=== PATIENT | male | born 1950 | race Caucasian/White ===

== ENCOUNTER 2020-03-21 09:44 | Emergency (ER) | payer OTHER ==
[~2020-03-21] VITALS: Ht 180.3 cm; Wt 111.1 kg
[2020-03-21 09:44] VITALS: BP_SYST 205
[~2020-03-21 09:44] MED LIST: ASA81 PO; CAT.2 PO; CLOP75TA32 PO; EMPA25TA PO; ENAL20TA18 PO; HYDR12.585 PO; METO25TA6 PO; SIMV40TA2 PO; SITA1TBM PO
[2020-03-21] MEDS: MORPHINE 4 MG/ML INJ. SYRINGE IVP ONE (10:09)
[2020-03-21] MEDS: KETOROLAC TROMETHAMINE 30 MG VIAL IVP ONE (10:09)
[2020-03-21] MEDS: NACL 0.9% 1,000 ML IV ONE (10:10)
[2020-03-21 10:15] LABS: BASOPHILS % (AUTO) 0.3 % (0.0-2.0); HEMATOCRIT 51.3 % (36-54); HEMOGLOBIN 17.3 g/dL (14.0-18.0); LYMPHOCYTES # (AUTO) 0.5 K/uL (1.0-5.5); LYMPHOCYTES % (AUTO) 3.4 % (20.5-51.5); MEAN CORPUSCULAR HEMOGLOBIN 30 pg (27-31); MEAN CORPUSCULAR HGB CONC 34 % (32-36); MEAN CORPUSCULAR VOLUME 90 fL (79.0-98.0); MONOCYTES # (AUTO) 0.8 K/uL (0.0-1.0); MONOCYTES % (AUTO) 5.6 % (1.7-9.3); NEUTROPHILS # (AUTO) 12.6 K/uL (1.8-7.7); NEUTROPHILS % (AUTO) 90.7 % (40.0-70.0); PLATELET COUNT (AUTO) 130 K/uL (130-430); RED BLOOD CELL COUNT(AUTO) 5.69 MIL/uL (4.2-6.2); RED CELL DISTRIBUTION WIDTH 13.5 % (9.0-15.0); WHITE BLOOD COUNT (AUTO) 13.9 K/uL (4.8-10.8)
[2020-03-21 10:27] LABS: CALCIUM 9.1 mg/dL (8.4-11.0); CREATININE 1.21 mg/dL (0.55-1.30); POTASSIUM 3.8 mmol/L (3.5-5.1)
[2020-03-21 10:34] LABS: ALBUMIN 3.8 g/dL (3.4-4.8); TOTAL BILIRUBIN 0.9 mg/dL (0.0-1.0)
[2020-03-21 11:44] LABS: BILIRUBIN,URINE NEGATIVE (NEGATIVE); BLOOD, URINE 3+ (NEGATIVE); CLARITY/URINE CLEAR (CLEAR); COLOR,URINE YELLOW (YELLOW); GLUCOSE,URINE 3+ (NEGATIVE); KETONES,URINE 2+ (NEGATIVE); LEUKOCYTE ESTERASE ,URINE NEGATIVE (NEGATIVE); NITRITE, URINE NEGATIVE (NEGATIVE); PROTEIN URINE 2+ (NEGATIVE); UROBILINOGEN,URINE 0.2 (0.2-1.0)
[2020-03-21] MEDS: ENALAPRILAT DIHYDRATE 1.25 MG/ML VIAL IVP ONE (11:45)
[2020-03-21 12:15] VITALS: BP_SYST 120
[2020-03-21 12:20] LABS: BACTERIA,URINE None Seen /HPF (None Seen); WBC,URINE 0-3 /HPF (0-3)
== END 2020-03-21 12:17 | disposition home or self-care (01) ==
LOC: SED 09:44
DX: R10.9 Unspecified abdominal pain (principal); I10 Essential (primary) hypertension; E11.9 Type 2 diabetes mellitus without complications; Z79.899 Other long term (current) drug therapy; Z79.82 Long term (current) use of aspirin
CPT/HCPCS: 36415; 74176; 81000; 80053; 82962; 85025; 96361; 96374; 96375; 99284; J1885; J2270; J7030

== ENCOUNTER 2022-09-09 10:30 | Inpatient (IN) | payer OTHER ==
[~2022-09-09] VITALS: Ht 180.3 cm; Wt 112.9 kg
[~2022-09-09 10:30] MED LIST changes: +SIMV-345 PO; -SIMV40TA2 PO
--- NOTE | 2022-09-09 10:30 | NUR ---
Placed in room 01 . Placed on cardiac rehabilitation specialist, blood pressure machine and pulse oximeter. To gown for exam. Side rails up. Report given to FILEMON DAMON.
--- NOTE | 2022-09-09 10:30 | NUR ---
PT BIBA AWAKE AND ALERT AOX4, NO SOB OR DISTRESS. PT WAS BROUGHT IN BECAUSE WHILE HE WAS AT RELIGIOUS, HIS ASSISTANT TODDLER TEACHER NOTICED HE WAS LOOKING MORE WEAK AND HIS SPEECH WAS SLOW. PT WAS OBSERVED TO ALSO HAVE L FACE DROOP. PT DENIES PAIN. PT STATES HE'S ON BLOOD THINNER BUT DOESNT KNOW WHAT KIND OR DOSAGE, FOR LOWER EXTREMITES ARTERY BLOCKAGE. PT HAS HX OF 2 CVA 5 YEARS AGO. PT ALSO HAS HX OF HTN, DM2, HLD.
[2022-09-09 10:33] VITALS: BP_SYST 88
--- NOTE | 2022-09-09 10:33 | NUR ---
ER DR. ESPINAL EXAMINING PT
--- NOTE | 2022-09-09 10:36 | NUR ---
CODE STROKE CALLED
--- NOTE | 2022-09-09 10:38 | NUR ---
Patient transported to radiology via GURNEY, accompanied by STAFF AND RN.
--- NOTE | 2022-09-09 10:42 | NUR ---
TELE NEURO REQUESTED ORDERED BY DR. ESPINAL
[2022-09-09] MEDS ORDERED: iohexoL 350 mgI/mL, 100 ML INFUS..BTL IV ONE (10:45)
[2022-09-09 10:54] LABS: BASOPHILS # (AUTO) 0.1 K/uL (0.0-0.2); BASOPHILS % (AUTO) 0.7 % (0.0-2.0); EOSINOPHILS # (AUTO) 0.2 K/uL (0.0-0.4); EOSINOPHILS % (AUTO) 1.6 % (0.0-4.0); HEMATOCRIT 48.9 % (36-54); HEMOGLOBIN 16.6 g/dL (14.0-18.0); LYMPHOCYTES # (AUTO) 1.6 K/uL (1.0-5.5); MEAN CORPUSCULAR HEMOGLOBIN 30 pg (27-31); MEAN CORPUSCULAR HGB CONC 34 % (32-36); MEAN CORPUSCULAR VOLUME 90 fL (79.0-98.0); MONOCYTES # (AUTO) 0.7 K/uL (0.0-1.0); MONOCYTES % (AUTO) 7.7 % (1.7-9.3); NEUTROPHILS # (AUTO) 7.1 K/uL (1.8-7.7); PLATELET COUNT (AUTO) 169 K/uL (130-430); RED BLOOD CELL COUNT(AUTO) 5.44 MIL/uL (4.2-6.2); RED CELL DISTRIBUTION WIDTH 14.1 % (9.0-15.0); WHITE BLOOD COUNT (AUTO) 9.7 K/uL (4.8-10.8)
--- NOTE | 2022-09-09 11:05 | NUR ---
TELENEURO SPEAKING TO AND EVALUATING PT
[2022-09-09 11:08] LABS: ANION GAP 11 (5-15); CALCIUM 9.2 mg/dL (8.4-11.0); CHLORIDE 98 mmol/L (98-107); GLUCOSE 267 mg/dL (70-99); UREA NITROGEN, BLOOD 23 mg/dL (8-21)
--- NOTE | 2022-09-09 11:10 | NUR ---
TELE NEURO STATED NO TPA, STROKE SCALE 0
[2022-09-09 11:14] LABS: ALANINE AMINOTRANSFERASE 25 U/L (12-78); ALBUMIN 3.5 g/dL (3.4-4.8); ASPARTATE AMINOTRANSFERASE 23 U/L (10-37); PROTHROMBIN TIME 10.7 SECS (9.5-12.5); TOTAL BILIRUBIN 0.8 mg/dL (0.0-1.0)
--- NOTE | 2022-09-09 11:20 | NUR ---
RUSS SWABBED AND SENT TO LAB
[2022-09-09] MEDS ORDERED: NACL 0.9% 1,000 ML IV ONE (12:15)
--- NOTE | 2022-09-09 14:16 | NUR ---
Admit bed requested Patient will be admitted to care of . Admitted to TELE unit. Diagnosis CVA Inpatient (Yes or No) YES Observation (Yes or No) NO Orientation concerns or request close to nursing station (Yes or No) NO Covid Status NEGATIVE On vent or bipap NO Isolation requirements NO Needs a sitter NO From Home (Yes or if No enter name of facility) HOME Requires Dialysis (Yes or No) NO Med Rec Completed (Yes of No) YES
--- NOTE | 2022-09-09 16:30 | NUR ---
Patient will be admitted to care of DR MULTANI. Admitted to TELE unit. Will go to room 111A. Belongings list completed. Complete and up to date summary report printed. SBAR report to be given at bedside with opportunity for questions.
--- NOTE | 2022-09-09 16:35 | NUR ---
OPENING NOTE; PT CAME FROM ER. RECEIVED REPORT FROM [facility] ER NURSE. VS: 96.7,78,134/77/78, 98%@RA. PT DENIES ANY PAIN OR DISCOMFORT. AMBULATED TO BATHROOM WITH STEADY GAIT. IV S/L NOTED NO IV INFILTRATION OR INFECTION NOTED. ENCOURAGED PT TO USE CALL LIGHT FOR ASSISTANCE. SAFETY PRECAUTION IN PLACE. WILL CONT TO MONITOR
--- NOTE | 2022-09-09 16:44 | NUR ---
CONSULTATION PAGED/CALLED Reason for Consultation: [] CVA Person Who was Notified: [] TEXTED DR Fracisco HENSON ON HIS CELL Consulting Physician: [] DR Fracisco HENSON Animal Rescuer Specialty: [] NEURO Ordering Physician: [] DR MULTANI
--- NOTE | 2022-09-09 16:45 | NUR ---
CONSULTATION PAGED/CALLED Reason for Consultation: [] CVA Person Who was Notified: [] DR Padmini MULTANI/ WILL ALSO NOTIFY MELINDA FLORES TOMORROW, 09/10/22 Consulting Physician: [] DR Padmini MULTANI Nursing Care Attendant Specialty: [] CARDIOLOGY Ordering Physician: [] DR Jm MULTANI
[2022-09-09 16:46] VITALS: BP_SYST 134
--- NOTE | 2022-09-09 18:30 | NUR ---
NOTES; FAMILY DROPPED OFF CELL PHONE GRAIN PACKER. WILL UPDATE INVENTORY LIST
[2022-09-09] MEDS ORDERED: FOLIC ACID 1 MG, THIAMINE HCL 100 MG, MAGNESIUM SULFATE 1 GM, MVI 10 ML in NACL 0.9% 1,... IV SCH (19:00)
--- NOTE | 2022-09-09 19:01 | NUR ---
CLOSING NOTE; PT RESTING IN BED. IV S/L REMAIN INTACT AND PATENT. NO IV INFILTRATION OR INFECTION NOTED. DENIES ANY PAIN OR DISCOMFORT. BED IS LOCKED AND AT LOW POSITION. SAFETY PRECAUTION IN PLACE. ENCOURAGED PT TO USE CALL LIGHT FOR ASSISTANCE. WILL ENDORSE CARE TO DATA PROCESSING CONTROL CLERK NURSE FOR THE CONTINUITY OF CARE.
[2022-09-09 19:45] VITALS: BP_SYST 121
[2022-09-09] MEDS ORDERED: THIAMINE HCL 100 MG, MAGNESIUM SULFATE 1 GM in NS 100 ML IV SCH (21:00)
[2022-09-09] MEDS ORDERED: FOLIC ACID 1 MG, MVI 10 ML in NACL 0.9% 1,000 ML IV SCH (21:00)
[2022-09-09] MEDS: chlordiazePOXIDE HCL 25 MG CAPSULE PO SCH ×2 (21:00→21:30)
[2022-09-10] VITALS: BP_SYST 116
--- NOTE | 2022-09-10 05:41 | NUR ---
CLOSING NOTE PATIENT WAS MOSTLY ALERT BUT HAD EPISODES OF CONFUSION. PATIENT DID NOT SHOW ANY STROKE-LIKE DEFICITS OTHER THAN SOME EPISODES OF CONFUSION. REORIENTATION EFFORTS WERE SUCCESSFUL. HE WAS COOPERATIVE TO CARE, HE WAS STABLE THROUGHOUT THE SHIFT, NO SHORTNESS OF BREATH OR CARDIAC EVENTS NOTED. AT THIS TIME, HE IS RESTING IN BED, STABLE, NO SIGNS OF RESPIRATORY DISTRESS. CALL LIGHT WITHIN REACH. BED IS LOCKED, ALARMED, AND AT THE LOWEST LEVEL. FALL, SAFETY, STROKE AND RESPIRATORY PRECAUTIONS HAVE BEEN IN PLACE THROUGHOUT THE SHIFT. WILL CONTINUE TO MONITOR UNTIL REPORT IS GIVEN AT BEDSIDE TO AM NURSE.
--- NOTE | 2022-09-10 07:53 | NUR ---
OPENING NOTES: RECEIVED BEDSIDE SBAR FROM PM SHIFT NURSE, NO S/S OF ANY DISTRESS, NON LABOR BREATHING, IV INTACT, PATIENT RESTING IN BED WITH EYES CLOSED, BED AT LOCKED AND LOW POSITION , CALL LIGHT IN REACH, ALL SAFETY CHECKS DONE AND WILL DO THOUGHT THE DAY.
[2022-09-10] MEDS: chlordiazePOXIDE HCL 25 MG CAPSULE PO SCH ×2 (08:52→09:00)
--- NOTE | 2022-09-10 09:02 | NUR ---
PATIENT REFUSED LIBRIUM, STATES DOSE NOT TAKE AT HOME.
--- NOTE | 2022-09-10 11:00 | NUR ---
SPOKE WITH DR HENSON, Fabrizio/Brionna SILVA, AND YEISON HOLDEN IV, PATIENT HAS NO HISTORY OF ETOH,
[2022-09-10 11:54] VITALS: BP_SYST 172
[2022-09-10] MEDS ORDERED: HYDROcodone/ACETAMIN 10-325 MG TAB PO PRN (12:00)
[2022-09-10] MEDS ORDERED: ONDANSETRON HCL 4 MG/2 ML VIAL IVP PRN (12:00)
[2022-09-10] MEDS ORDERED: HYDROcodone/ACETAMIN 5-325 MG TAB (NORCO/ VICODIN) PO PRN (12:00)
[2022-09-10] MEDS ORDERED: NALOXONE HCL 0.4 MG/ML AMP (NARCAN) IVP PRN ×2 (12:00)
[2022-09-10] MEDS ORDERED: NON-FORMULARY MEDICATION (Empagliflozin (Jardiance) 25 MG) PO SCH (12:00)
[2022-09-10] MEDS ORDERED: ACETAMINOPHEN 325 MG TABLET PO PRN ×2 (12:00→12:30)
[2022-09-10] MEDS ORDERED: ASPIRIN 81 MG TAB.CHEW PO ONE (12:15)
[2022-09-10] MEDS ORDERED: ATORVASTATIN 20 MG TABLET PO ONE (12:15)
[2022-09-10] MEDS ORDERED: CLOPIDOGREL BISULFATE 75 MG TABLET PO ONE (12:30)
--- NOTE | 2022-09-10 13:23 | NUR ---
PATIENT REQUESTING ACCU CHECKS, NEW ORDER FROM DR Jm MULTANI FINGER STICKS ACHS, NO INSULIN AT THIS TIME
[2022-09-10] MEDS: NORMAL SALINE 5 ML DISP.SYRIN IVF SCH ×2 (14:00→21:08)
--- NOTE | 2022-09-10 15:57 | NUR ---
Paint Brush Maker EMAIL CAMPAIGN MANAGER was alerted to this patient in the Length of Stay mtg. due to pts. ETOH. EMAIL CAMPAIGN MANAGER entered pts. room and he was on phone with his supervisor wet pour. EMAIL CAMPAIGN MANAGER introduced self to pt. at bedside. Pt. was calm, kind and open to this interview. Pt. stated he is feeling like he had a mild stroke and stated this will be the third one in a few years. Pt. stated he does not have an alcohol issue and only drinks a 12-pack in a year. EMAIL CAMPAIGN MANAGER had looked in pts IV med. list which shows pt. had a banana bag. Pt. was adamant and numerous times declined any resources EMAIL CAMPAIGN MANAGER was prepared to leave with pt. Pt. stated he lives home alone and his son lives in [place] and Dtr. in [place]. Additional support comes from his methodist and 3 pastors there that he had a connection with. When asked if pt. had any mental health needs currently or in the past, pt. stated about 6 year ago , he was depressed and was in a lock down facility. Dr. Rosas finally cleared him. Pt. stated he is not depressed or suicidal at this time. Pt. added on a weekly basis, he speaks to a therapist in [place] via zoom for an issue he choose not to elaborate on. EMAIL CAMPAIGN MANAGER affirmed pts. ability to seek out help and validated how important it is to have a therapist to speak to. Pt did not have any needs, questions or concerns at this point. EMAIL CAMPAIGN MANAGER left her card with pt. and will remain available as needed.
[2022-09-10 16:18] VITALS: BP_SYST 157
--- NOTE | 2022-09-10 18:49 | NUR ---
CLOSING NOTES: PATIENT REMAINED STABLE THOUGHT THE DAY, NO S/S OF ANY DISTRESS, NON LABOR BREATHING, IV INTACT, BED LOCKED AND LOW, ALL SAFETY CHECKS DONE THOUGHT THE DAY, WILL GIVE PM SHIFT NURSE BEDSIDE SBAR
[2022-09-10 19:35] VITALS: BP_SYST 156
[2022-09-10] MEDS ORDERED: SITAGLIPTIN PHOS PO SCH (21:00)
[2022-09-10] MEDS ORDERED: [UNRECOGNIZED DRUG - OTHER] PO SCH (21:00)
[2022-09-10] MEDS ORDERED: METFORMIN HCL PO SCH (21:00)
[2022-09-10] MEDS ORDERED: cloNIDine HCL 0.1 MG TABLET PO ONE (21:18)
[2022-09-10] MEDS ORDERED: METOPROLOL TARTRATE 25 MG TABLET PO ONE (21:18)
[2022-09-10] MEDS ORDERED: lisinopriL 20 MG TABLET PO ONE (21:40)
[2022-09-11] VITALS: BP_SYST 151
[2022-09-11] MEDS: NORMAL SALINE 5 ML DISP.SYRIN IVF SCH ×3 (06:13→20:53)
[2022-09-11 06:14] LABS: BASOPHILS # (AUTO) 0.1 K/uL (0.0-0.2); BASOPHILS % (AUTO) 0.8 % (0.0-2.0); EOSINOPHILS # (AUTO) 0.4 K/uL (0.0-0.4); EOSINOPHILS % (AUTO) 5.8 % (0.0-4.0); HEMATOCRIT 46.9 % (36-54); HEMOGLOBIN 15.8 g/dL (14.0-18.0); LYMPHOCYTES # (AUTO) 2.3 K/uL (1.0-5.5); LYMPHOCYTES % (AUTO) 33.7 % (20.5-51.5); MEAN CORPUSCULAR HEMOGLOBIN 30 pg (27-31); MEAN CORPUSCULAR HGB CONC 34 % (32-36); MEAN CORPUSCULAR VOLUME 89 fL (79.0-98.0); MONOCYTES # (AUTO) 0.6 K/uL (0.0-1.0); MONOCYTES % (AUTO) 8.5 % (1.7-9.3); NEUTROPHILS # (AUTO) 3.6 K/uL (1.8-7.7); NEUTROPHILS % (AUTO) 51.2 % (40.0-70.0); PLATELET COUNT (AUTO) 152 K/uL (130-430); RED BLOOD CELL COUNT(AUTO) 5.26 MIL/uL (4.2-6.2); RED CELL DISTRIBUTION WIDTH 14.3 % (9.0-15.0); WHITE BLOOD COUNT (AUTO) 6.9 K/uL (4.8-10.8)
[2022-09-11 06:42] LABS: ALANINE AMINOTRANSFERASE 24 U/L (12-78); ALBUMIN 3.3 g/dL (3.4-4.8); ANION GAP 9 (5-15); ASPARTATE AMINOTRANSFERASE 14 U/L (10-37); CALCIUM 8.8 mg/dL (8.4-11.0); CHLORIDE 103 mmol/L (98-107); CREATININE 1.13 mg/dL (0.55-1.30); GLUCOSE 158 mg/dL (70-99); PHOSPHORUS 3.4 mg/dL (2.7-4.5); TOTAL BILIRUBIN 0.7 mg/dL (0.0-1.0); UREA NITROGEN, BLOOD 21 mg/dL (8-21)
--- NOTE | 2022-09-11 06:45 | NUR ---
CLOSING NOTE PATIENT SLEPT WELL THROUGHOUT THE NIGHT, NO COMPLAINTS OF CHEST PAIN OR SHORTNESS OF BREATH. PATIENT WAS COOPERATIVE TO CARE. AT THIS TIME, HE IS RESTING IN BED, STABLE, NO SIGNS OF RESPIRATORY DISTRESS. CALL LIGHT PLACED WITHIN REACH. BED IS LOCKED, ALARMED, AND AT THE LOWEST LEVEL. FALL, SAFETY, RESPIRATORY AND ASPIRATION PRECAUTIONS HAVE BEEN IN PLACE THROUGHOUT THE SHIFT. WILL CONTINUE TO MONITOR UNTIL REPORT IS GIVEN AT BEDSIDE TO AM NURSE. Addendum: 09/11/22 at 0730 by [employer] FILEMON Mauro RN NO STROKE LIKE DEFICITS NOTED.
--- NOTE | 2022-09-11 07:34 | NUR ---
OPENING NOTES: RECEIVED BEDSIDE SBAR FROM PM SHIFT NURSE, NO S/S OF ANY DISTRESS, NON LABOR BREATHING, SKIN INTACT, IV INTACT CLEAN AND DRY, BED AT LOW AND LOCKED POSITION CALL LIGHT IN REACH, ALL SAFETY CHECKS DONE AND WILL DO THOUGHT THE DAY. WILL MONITOR PATIENT AND GIVE MEDS PER ORDERS
[2022-09-11 08:00] VITALS: BP_SYST 107
[2022-09-11] MEDS: ASPIRIN 81 MG TAB.CHEW PO SCH (08:06)
[2022-09-11] MEDS: cloNIDine HCL 0.1 MG TABLET PO SCH ×2 (08:08→20:48)
[2022-09-11] MEDS: CLOPIDOGREL BISULFATE 75 MG TABLET PO SCH (08:09)
[2022-09-11] MEDS: lisinopriL 20 MG TABLET PO SCH ×2 (08:09→20:48)
[2022-09-11] MEDS: ATORVASTATIN 20 MG TABLET PO SCH (08:09)
[2022-09-11] MEDS ORDERED: METOPROLOL TARTRATE 25 MG TABLET PO SCH (09:00)
[2022-09-11] MEDS ORDERED: ENAL20TA18 PO ×2 (10:06)
[2022-09-11] MEDS ORDERED: HYDR12.585 PO (10:06)
[2022-09-11] MEDS ORDERED: LIP20 PO (10:06)
[2022-09-11] MEDS ORDERED: HYDROCHLOROTHIAZIDE 12.5 MG CAPSULE (HCTZ) PO ONE (10:15)
--- NOTE | 2022-09-11 18:27 | NUR ---
CLOSING NOTES: PATIENT REMAINED STABLE THOUGHT THE DAY, NO S/S OF ANY DISTRESS, NON LABOR BREATHING, SKIN ALL INTACT, BED AT LOCKED AND LOW POSITION CALL LIGHT IN REACH, IV INTACT WILL GIVE PM SHIFT NURSE BEDSIDE SBAR
[2022-09-11] MEDS ORDERED: METOPROLOL SUCCINATE 25 MG TAB.SR.24H (TOPROL XL) PO ONE (19:00)
[2022-09-11 19:20] VITALS: BP_SYST 153
--- NOTE | 2022-09-11 19:20 | NUR ---
PM ASSESSMENT; -Patient is awake, alert, oriented X4. Pt denies any chest pain,sob,or any acute distress. Patient oriented to hospital room, call light, toileting, pain management and safety-teach back done. Patient informed that I (Anila) will be her nurse and that his room number is 111-A. Side rails 2, Call light within reach. Cont to monitor pt.
[2022-09-12] VITALS: BP_SYST 114
--- NOTE | 2022-09-12 00:15 | NUR ---
ROUNDS; -Pt is asleep.NO s/s any acute distress noted. Call light w/in reach. Cont to monitor pt.
--- NOTE | 2022-09-12 03:45 | NUR ---
ROUNDS; -Pt is asleep.NO s/s any acute distress noted. Call light w/in reach. Cont to monitor pt.
[2022-09-12] MEDS: NORMAL SALINE 5 ML DISP.SYRIN IVF SCH ×3 (06:08→20:44)
--- NOTE | 2022-09-12 06:34 | NUR ---
CLOSING NOTES; -Pt is resting in bed comfortably. No s/s any acute distress noted. Pt's condition stable. Bed alarmed,side railsx2 ,call light w/in reach. will endorse to next nurse to cont care. Addendum: 09/12/22 at 0730 by Federica Mauro RN RN ADDITIONAL NOTES; ENDORSED TO BNOI COLBERT TO CONTINUITY OF CARE AT 0711.
[2022-09-12 07:04] LABS: BASOPHILS # (AUTO) 0.1 K/uL (0.0-0.2); BASOPHILS % (AUTO) 0.9 % (0.0-2.0); EOSINOPHILS # (AUTO) 0.3 K/uL (0.0-0.4); EOSINOPHILS % (AUTO) 4.9 % (0.0-4.0); HEMATOCRIT 46.8 % (36-54); LYMPHOCYTES % (AUTO) 31.8 % (20.5-51.5); MEAN CORPUSCULAR HEMOGLOBIN 31 pg (27-31); MEAN CORPUSCULAR HGB CONC 34 % (32-36); MEAN CORPUSCULAR VOLUME 89 fL (79.0-98.0); MONOCYTES # (AUTO) 0.5 K/uL (0.0-1.0); MONOCYTES % (AUTO) 8.5 % (1.7-9.3); NEUTROPHILS # (AUTO) 3.4 K/uL (1.8-7.7); NEUTROPHILS % (AUTO) 53.9 % (40.0-70.0); PLATELET COUNT (AUTO) 143 K/uL (130-430); RED BLOOD CELL COUNT(AUTO) 5.24 MIL/uL (4.2-6.2); RED CELL DISTRIBUTION WIDTH 14.5 % (9.0-15.0); WHITE BLOOD COUNT (AUTO) 6.2 K/uL (4.8-10.8)
[2022-09-12 07:38] LABS: ANION GAP 9 (5-15); CHLORIDE 103 mmol/L (98-107); CREATININE 1.03 mg/dL (0.55-1.30); GLUCOSE 147 mg/dL (70-99); UREA NITROGEN, BLOOD 20 mg/dL (8-21)
[2022-09-12 08:00] VITALS: BP_SYST 168
[2022-09-12] MEDS: HYDROCHLOROTHIAZIDE 12.5 MG CAPSULE (HCTZ) PO SCH (08:48)
[2022-09-12] MEDS: CLOPIDOGREL BISULFATE 75 MG TABLET PO SCH (08:48)
[2022-09-12] MEDS: METOPROLOL SUCCINATE 50 MG TAB.SR.24H (TOPROL XL) PO SCH (08:48)
[2022-09-12] MEDS: lisinopriL 20 MG TABLET PO SCH ×2 (08:50→20:43)
[2022-09-12] MEDS: ATORVASTATIN 20 MG TABLET PO SCH (08:50)
[2022-09-12] MEDS: ASPIRIN 81 MG TAB.CHEW PO SCH (08:50)
[2022-09-12] MEDS: cloNIDine HCL 0.1 MG TABLET PO SCH (08:51)
--- NOTE | 2022-09-12 10:59 | NUR ---
Hand off report received from Teressa COLBERT. Patient alert, oriented and awake; states that he is waiting for his breakfast and that he is possibly getting discharged today. AM meds administered but Metformin held. Upon checking pt records, pt had CT with Iv contrast on 09/09. Pt received 3 doses of metformin for the past 2 days. Called pharmacy and spoke with the pharmacist to consult whether metformin should be held today even though it is past 48hrs post IV contrast admin. Pharmacy recommended to hold the metformin for now and stated that lactic acid was already elevated prior to administering the metformin and that doctor should be notified and see if he can order lactic acid labs. Spoke to Dr. Moises Monge and orders received: hold metfomin for now and order lactic acid labs.
[2022-09-12 11:56] VITALS: BP_SYST 149
[2022-09-12] MEDS ORDERED: amLODIPine BESYLATE 5 MG TABLET PO ONE (13:30)
--- NOTE | 2022-09-12 15:03 | NUR ---
Dietitian Recommendations * Continue Cardiac, CCHO diet LP, MS GREGORIO Please refer to Nutrition Assessment for details. Addendum: 09/12/22 at [address] Amended: Links added.
[2022-09-12 17:33] VITALS: BP_SYST 158
--- NOTE | 2022-09-12 17:42 | NUR ---
RECEIVED A CALL EARLIER FROM GREGORIO, [employer] FOR [employer] FA[employer] # WHO IS REQUESTING IF PT CAN HAVE AN ORDER FOR HOME HEALTH WITH PT. PT IS NOT YET CLEARED BY PSYCHOLOGICAL ASSISTANT TO GO HOME TODAY BUT POSSIBLY OK [facility]. PENDING CARDIOLOGY CLEARANCE.
--- NOTE | 2022-09-12 18:12 | NUR ---
LACTIC ACID RESULT 2.1 [address] CRAIG FOR THIS RESULT. ORDERED TO DC METFORMIN.
[2022-09-12 19:15] VITALS: BP_SYST 162
[2022-09-13 00:19] VITALS: BP_SYST 122
--- NOTE | 2022-09-13 00:19 | NUR ---
ROUNDS; -Pt is asleep, easily arousal upon making rounds. Pt denies any pain,sob,or any acute distress. VS stable except BP low diastole 122/42. Instructed not to get OOB w/out using call light for assistance, pt verbalized understanding. Urinal emptied yellow urine 250ml urine. Side rails x2. Call light w/in reach. Cont to monitor pt.
--- NOTE | 2022-09-13 03:45 | NUR ---
ROUNDS; -Pt is resting in bed comfortably. No s/s any acute distress noted. Bed alarmed,side rails x3, call light w/in reach. Cont to monitor pt.
[2022-09-13] MEDS: NORMAL SALINE 5 ML DISP.SYRIN IVF SCH ×3 (05:46→21:42)
--- NOTE | 2022-09-13 06:34 | NUR ---
ROUNDS; -Pt is resting in bed comfortably. No s/s any acute distress noted. Pt's condition stable. Bed alarmed,side rails x3, call light w/in reach. will endorse to next nurse to continuity of care.
[2022-09-13 07:38] LABS: BASOPHILS # (AUTO) 0.1 K/uL (0.0-0.2); BASOPHILS % (AUTO) 0.8 % (0.0-2.0); EOSINOPHILS # (AUTO) 0.3 K/uL (0.0-0.4); EOSINOPHILS % (AUTO) 4.1 % (0.0-4.0); HEMATOCRIT 50.4 % (36-54); HEMOGLOBIN 17.1 g/dL (14.0-18.0); LYMPHOCYTES % (AUTO) 28.5 % (20.5-51.5); MEAN CORPUSCULAR HEMOGLOBIN 30 pg (27-31); MEAN CORPUSCULAR HGB CONC 34 % (32-36); MEAN CORPUSCULAR VOLUME 89 fL (79.0-98.0); MONOCYTES # (AUTO) 0.6 K/uL (0.0-1.0); NEUTROPHILS # (AUTO) 4.1 K/uL (1.8-7.7); NEUTROPHILS % (AUTO) 58.6 % (40.0-70.0); PLATELET COUNT (AUTO) 148 K/uL (130-430); RED BLOOD CELL COUNT(AUTO) 5.67 MIL/uL (4.2-6.2); RED CELL DISTRIBUTION WIDTH 14.2 % (9.0-15.0); WHITE BLOOD COUNT (AUTO) 6.9 K/uL (4.8-10.8)
[2022-09-13 08:02] VITALS: BP_SYST 158
[2022-09-13 08:12] LABS: ALANINE AMINOTRANSFERASE 25 U/L (12-78); ALBUMIN 3.3 g/dL (3.4-4.8); ANION GAP 11 (5-15); ASPARTATE AMINOTRANSFERASE 13 U/L (10-37); CALCIUM 9.2 mg/dL (8.4-11.0); CHLORIDE 101 mmol/L (98-107); CREATININE 1.12 mg/dL (0.55-1.30); GLUCOSE 151 mg/dL (70-99); PHOSPHORUS 4.2 mg/dL (2.7-4.5); TOTAL BILIRUBIN 0.8 mg/dL (0.0-1.0); UREA NITROGEN, BLOOD 22 mg/dL (8-21)
[2022-09-13] MEDS: amLODIPine BESYLATE 5 MG TABLET PO SCH (08:27)
[2022-09-13] MEDS: METOPROLOL SUCCINATE 50 MG TAB.SR.24H (TOPROL XL) PO SCH (08:28)
[2022-09-13] MEDS: ATORVASTATIN 20 MG TABLET PO SCH (08:28)
[2022-09-13] MEDS: lisinopriL 20 MG TABLET PO SCH ×2 (08:29→21:36)
[2022-09-13] MEDS: ASPIRIN 81 MG TAB.CHEW PO SCH (08:29)
[2022-09-13] MEDS: HYDROCHLOROTHIAZIDE 12.5 MG CAPSULE (HCTZ) PO SCH (08:29)
[2022-09-13] MEDS: CLOPIDOGREL BISULFATE 75 MG TABLET PO SCH (08:29)
[2022-09-13 12:00] VITALS: BP_SYST 167
[2022-09-13] MEDS ORDERED: hydrALAZINE HCL 20 MG/ML VIAL IVP PRN (15:45)
[2022-09-13 16:00] VITALS: BP_SYST 158
[2022-09-13 19:00] VITALS: BP_SYST 149
--- NOTE | 2022-09-13 19:01 | NUR ---
pt a&o, fall precautions in place, on tele, BP high 150s - PRN hydralazine ordered for sbp >160. no c/o pain. awaiting d/c from cardio clearance - possibly tomorrow if BP under control.
[2022-09-14] MEDS: NORMAL SALINE 5 ML DISP.SYRIN IVF SCH ×2 (05:44→13:43)
[2022-09-14 06:04] LABS: BASOPHILS # (AUTO) 0.1 K/uL (0.0-0.2); BASOPHILS % (AUTO) 0.9 % (0.0-2.0); EOSINOPHILS # (AUTO) 0.3 K/uL (0.0-0.4); HEMOGLOBIN 17.3 g/dL (14.0-18.0); LYMPHOCYTES # (AUTO) 2.2 K/uL (1.0-5.5); LYMPHOCYTES % (AUTO) 28.8 % (20.5-51.5); MEAN CORPUSCULAR HEMOGLOBIN 31 pg (27-31); MEAN CORPUSCULAR HGB CONC 35 % (32-36); MEAN CORPUSCULAR VOLUME 88 fL (79.0-98.0); MONOCYTES # (AUTO) 0.7 K/uL (0.0-1.0); MONOCYTES % (AUTO) 8.9 % (1.7-9.3); NEUTROPHILS # (AUTO) 4.5 K/uL (1.8-7.7); NEUTROPHILS % (AUTO) 57.4 % (40.0-70.0); PLATELET COUNT (AUTO) 145 K/uL (130-430); RED BLOOD CELL COUNT(AUTO) 5.66 MIL/uL (4.2-6.2); RED CELL DISTRIBUTION WIDTH 14.3 % (9.0-15.0); WHITE BLOOD COUNT (AUTO) 7.7 K/uL (4.8-10.8)
[2022-09-14 06:41] LABS: ALANINE AMINOTRANSFERASE 25 U/L (12-78); ALBUMIN 3.4 g/dL (3.4-4.8); ANION GAP 10 (5-15); ASPARTATE AMINOTRANSFERASE 14 U/L (10-37); CALCIUM 9.1 mg/dL (8.4-11.0); CHLORIDE 101 mmol/L (98-107); CREATININE 1.28 mg/dL (0.55-1.30); GLUCOSE 157 mg/dL (70-99); PHOSPHORUS 4.5 mg/dL (2.7-4.5); TOTAL BILIRUBIN 0.8 mg/dL (0.0-1.0); UREA NITROGEN, BLOOD 26 mg/dL (8-21)
[2022-09-14 08:00] VITALS: BP_SYST 168
[2022-09-14] MEDS: HYDROCHLOROTHIAZIDE 12.5 MG CAPSULE (HCTZ) PO SCH (08:23)
[2022-09-14] MEDS: ASPIRIN 81 MG TAB.CHEW PO SCH (08:23)
[2022-09-14] MEDS: CLOPIDOGREL BISULFATE 75 MG TABLET PO SCH (08:23)
[2022-09-14] MEDS: lisinopriL 20 MG TABLET PO SCH (08:23)
[2022-09-14] MEDS: METOPROLOL SUCCINATE 50 MG TAB.SR.24H (TOPROL XL) PO SCH (08:24)
[2022-09-14] MEDS: amLODIPine BESYLATE 5 MG TABLET PO SCH (08:24)
[2022-09-14] MEDS: ATORVASTATIN 20 MG TABLET PO SCH (08:26)
[2022-09-14 16:00] VITALS: BP_SYST 148
[2022-09-14] MEDS ORDERED: LISI40TA13 PO (16:27)
[2022-09-14] MEDS ORDERED: METO50TA7 PO (16:27)
[2022-09-14] MEDS ORDERED: NOR10 PO (16:28)
[2022-09-14] MEDS ORDERED: AMLO5TAB4 PO (17:14)
[2022-09-14 19:07] VITALS: BP_SYST 128
--- NOTE | 2022-09-14 19:43 | NUR ---
pt vss. a&ox4. d/c to home with new med rec and education. pt made aware per insurance needs to follow up with pcp to get vascular surgeon consult. pt ambulatory. vehicle called for pat to d/c @ 1944. PIV removed. no c/o pain or sob.
[2022-09-15] MEDS ORDERED: lisinopriL 20 MG TABLET PO SCH (09:00)
[2022-09-15] MEDS ORDERED: amLODIPine BESYLATE 10 MG TABLET PO SCH (09:00)
[2022-09-15] MEDS ORDERED: amLODIPine BESYLATE 5 MG TABLET PO SCH (09:00)
== END 2022-09-14 19:45 | disposition home or self-care (01) | DRG 314 ==
LOC: SED 10:30 → STU 14:07 → SMU 09-14 12:33
PROVIDERS: ADMIT Specialist; ATTEND Specialist
DX: I95.9 Hypotension, unspecified (principal); N17.0 Acute kidney failure with tubular necrosis; F10.931 Alcohol use, unspecified with withdrawal delirium; G45.9 Transient cerebral ischemic attack, unspecified; I10 Essential (primary) hypertension; Z20.822 Contact with and (suspected) exposure to COVID-19; E11.51 Type 2 diabetes mellitus with diabetic peripheral angiopathy without gangrene; E78.5 Hyperlipidemia, unspecified; Y90.9 Presence of alcohol in blood, level not specified; G31.9 Degenerative disease of nervous system, unspecified; R29.810 Facial weakness; Z86.73 Personal history of transient ischemic attack (TIA), and cerebral infarction without residual deficits
CPT/HCPCS: 36415; 70450-TC; 70496; 70498; 70551; 71045; 76376; 80048; 80053; 82550; 83605; 83735; 83880; 84100; 84484; 85025; 85610-TC; 85730-TC; 93005; 93306; 96360; 99285; G0378; J3411; J3475; J3490; J7030; Q9967